=== PATIENT | male | born 1990 | race Two or more races ===

== ENCOUNTER 2020-09-09 12:26 | Emergency (ER) | payer MEDICAID ==
[~2020-09-09] VITALS: Ht 170.2 cm; Wt 95.3 kg
[2020-09-09 13:28] VITALS: BP 125/63
[2020-09-09] MEDS ORDERED: TDAP [DIPH/PERTUSSIS/TET] 0.5 ML VIAL IM ONE ×2 (15:00→15:48)
[2020-09-09] MEDS ORDERED: LIDOCAINE 2%-EPI 1:100,000 30 ML VIAL TP ONE (15:00)
[2020-09-09] MEDS ORDERED: LIDOCAINE 0.5%-EPI 1:200,000 50 ML VIAL ONE (15:11)
--- NOTE | 2020-09-09 15:50 | NUR ---
SUTURING DONE BY .
--- NOTE | 2020-09-09 16:00 | NUR ---
WOUND CLEANING AND DRESSING DONE.
--- NOTE | 2020-09-09 16:01 | NUR ---
Patient discharged to home in stable condition. Written and verbal after care instructions given. Patient verbalizes understanding of instruction.
== END 2020-09-09 16:02 | disposition home or self-care (01) ==
LOC: ER 12:26
DX: S61.216A Laceration without foreign body of right little finger without damage to nail, initial encounter (principal); S61.214A Laceration without foreign body of right ring finger without damage to nail, initial encounter; W26.8XXA Contact with other sharp object(s), not elsewhere classified, initial encounter; Y93.89 Activity, other specified; Y92.89 Other specified places as the place of occurrence of the external cause; Y99.8 Other external cause status
CPT/HCPCS: 12002; 90471; 90715; 99283; J3490